=== PATIENT | female | born 1980 | race African-American/Black ===

== ENCOUNTER 2018-12-03 14:16 | Emergency (ER) | payer MEDICAID ==
[~2018-12-03] VITALS: Ht 157.5 cm; Wt 162.0 kg
[2018-12-03 16:49] VITALS: BP 160/90
== END 2018-12-03 16:52 | disposition home or self-care (01) ==
LOC: ER 14:16
DX: S93.401A Sprain of unspecified ligament of right ankle, initial encounter (principal); E66.01 Morbid (severe) obesity due to excess calories; Z68.44 Body mass index [BMI] 60.0-69.9, adult; W18.39XA Other fall on same level, initial encounter; Y93.89 Activity, other specified; Y92.89 Other specified places as the place of occurrence of the external cause; Y99.8 Other external cause status
CPT/HCPCS: 73590; 73610; 99283

== ENCOUNTER 2019-06-10 03:15 | Emergency (ER) | payer MEDICAID ==
[~2019-06-10] VITALS: Ht 157.5 cm; Wt 159.0 kg
[2019-06-10] MEDS ORDERED: KETOROLAC 30MG/ML VIAL IM ONE (05:00)
[2019-06-10 05:03] VITALS: BP 152/84
== END 2019-06-10 05:22 | disposition home or self-care (01) ==
LOC: ER 03:15
DX: H92.01 Otalgia, right ear (principal)
CPT/HCPCS: 96372; 99283; J1885